=== PATIENT | female | born 1995 | race Caucasian/White ===

== ENCOUNTER 2019-04-21 05:27 | Inpatient (IN) | payer OTHER ==
[2019-04-21] MEDS ORDERED: OXYTOCIN 30 UNITS/LR 500 ML IV ×2 (08:00→14:30)
[2019-04-21] MEDS ORDERED: CARBOPROST 250 MCG INJ IM ×2 (08:00→14:30)
[2019-04-21 08:05] LABS: ADD MAN DIFF? NO
[2019-04-21 08:08] LABS: BASOPHILS % 0.3 % (0.0-2.0); EOSINOPHILS # 0.1 10^3/ul (0.0-0.5); EOSINOPHILS % 1.1 % (0.0-7.0); HEMATOCRIT 32.7 % (37.0-47.0); HEMOGLOBIN 10.1 g/dl (12.0-16.0); LYMPHOCYTES # 2.2 10^3/ul (0.8-2.9); LYMPHOCYTES % 29.8 % (15.0-51.0); MEAN CORPUSCULAR HEMOGLOBIN 27.3 pg (29.0-33.0); MEAN CORPUSCULAR HGB CONC 30.9 g/dl (32.0-37.0); MEAN CORPUSCULAR VOLUME 88.4 fl (82.0-101.0); MEAN PLATELET VOLUME 11.4 fl (7.4-10.4); MONOCYTE # 0.5 10^3/ul (0.3-0.9); MONOCYTES % 6.5 % (0.0-11.0); NEUTROPHIL # 4.6 10^3/ul (1.6-7.5); NEUTROPHILS % 62.2 % (39.0-77.0); PLATELET COUNT 222 10^3/UL (140-415); RED CELL DISTRIBUTION WIDTH 13.9 % (11.5-14.5)
[2019-04-21 08:08] LABS: WHITE BLOOD COUNT 7.3 10^3/ul (4.8-10.8)
[2019-04-21 08:11] LABS: INR 0.86; PROTIME 11.8 Sec (11.9-14.9); PT RATIO 0.9
[2019-04-21 08:12] LABS: PARTIAL THROMBOPLASTIN TIME 28.9 Sec (23.0-35.0)
[2019-04-21] MEDS: LACTATED RINGER'S 1,000 ML IV ×2 (08:31→15:30)
[2019-04-21 08:50] LABS: HEPATITIS B SURFACE ANTIGEN NEGATIVE (NEGATIVE)
[2019-04-21] MEDS ORDERED: EPHEDrine 25 MG/5 ML SYG (08:54)
[2019-04-21] MEDS ORDERED: morphine SULFATE/PF (10 MG/10 ML) INJ (08:54)
[2019-04-21] MEDS ORDERED: OXYTOCIN 30 UNITS/LR 500 ML BAG IV (08:54)
[2019-04-21] MEDS ORDERED: PHENYLephrine (100 MCG/ML) 10ML SYG (08:54)
[2019-04-21] MEDS ORDERED: ONDANSETRON 4 MG INJ ×2 (09:12→09:52)
[2019-04-21] MEDS ORDERED: NALOXONE (0.4 MG/ML) INJ IV (09:30)
[2019-04-21] MEDS ORDERED: FENTAnyl 50 MCG/ML VIAL IV ×2 (09:30)
[2019-04-21] MEDS ORDERED: HYDROmorphONE 1 MG/5 ML IV SYRINGE IV ×2 (09:30)
[2019-04-21] MEDS ORDERED: ALBUTEROL 0.083% (NEB) 2.5 MG/3 ML AMP HHN (09:30)
[2019-04-21] MEDS ORDERED: ONDANSETRON 4 MG INJ IV ×2 (09:30)
[2019-04-21] MEDS ORDERED: METOCLOPRAMIDE 10 MG INJ IV (09:30)
[2019-04-21] MEDS ORDERED: HYDROmorphONE 0.5 MG/0.5 ML SYG IV ×2 (09:30)
[2019-04-21] MEDS ORDERED: KETOROLAC 30 MG INJ IV (09:30)
[2019-04-21] MEDS ORDERED: DIPHENHYDRAMINE 50 MG INJ IV (09:30)
[2019-04-21] MEDS: CEFAZOLIN 2 GM/50 ML (PMX) 50 ML IVPB (10:47)
[2019-04-21] MEDS: METHYLERGONOVINE 0.2 MG INJ IM (10:48)
[2019-04-21] MEDS: MISOPROSTOL 200 MCG TAB PR (11:34)
[2019-04-21] MEDS: OXYTOCIN 30 UNITS/LR 500 ML IV ×2 (11:35→16:07)
[2019-04-21] MEDS: DEXTROSE 5%-LR 1,000 ML IV ×2 (14:11→22:11)
[2019-04-21] MEDS ORDERED: LANOLIN HPA 1 PKT TOP (14:30)
[2019-04-21] MEDS ORDERED: MISOPROSTOL 200 MCG TAB PR (14:30)
[2019-04-21] MEDS ORDERED: METHYLERGONOVINE 0.2 MG INJ IM (14:30)
[2019-04-21] MEDS ORDERED: METHYLERGONOVINE 0.2 MG TAB PO (14:30)
[2019-04-21 15:39] LABS: RAPID PLASMA REAGIN NONREACTIVE (NR)
[2019-04-21] MEDS: DIPHENHYDRAMINE 50 MG INJ IV (16:57)
[2019-04-21] MEDS: SENNA/DOCUSATE NA (8.6MG/50MG) TAB PO (21:45)
[2019-04-21] MEDS: KETOROLAC 30 MG INJ IV (23:58)
[2019-04-22] MEDS: LACTATED RINGER'S 1,000 ML IV (02:29)
[2019-04-22 05:23] LABS: ADD MAN DIFF? NO
[2019-04-22 05:30] LABS: BASOPHILS % 0.2 % (0.0-2.0); EOSINOPHILS # 0.1 10^3/ul (0.0-0.5); EOSINOPHILS % 0.6 % (0.0-7.0); HEMATOCRIT 30.5 % (37.0-47.0); HEMOGLOBIN 9.6 g/dl (12.0-16.0); LYMPHOCYTES # 1.7 10^3/ul (0.8-2.9); LYMPHOCYTES % 17.9 % (15.0-51.0); MEAN CORPUSCULAR HEMOGLOBIN 27.3 pg (29.0-33.0); MEAN CORPUSCULAR HGB CONC 31.5 g/dl (32.0-37.0); MEAN CORPUSCULAR VOLUME 86.6 fl (82.0-101.0); MONOCYTE # 0.7 10^3/ul (0.3-0.9); MONOCYTES % 7.5 % (0.0-11.0); NEUTROPHIL # 6.9 10^3/ul (1.6-7.5); NEUTROPHILS % 73.5 % (39.0-77.0); PLATELET COUNT 196 10^3/UL (140-415); RED BLOOD COUNT 3.52 10^6/ul (4.20-5.40)
[2019-04-22 05:30] LABS: WHITE BLOOD COUNT 9.4 10^3/ul (4.8-10.8)
[2019-04-22] MEDS: DEXTROSE 5%-LR 1,000 ML IV (06:11)
[2019-04-22] MEDS: MAGNESIUM HYDROXIDE 30ML CUP PO (09:15)
[2019-04-22] MEDS: SENNA/DOCUSATE NA (8.6MG/50MG) TAB PO ×2 (09:15→21:33)
[2019-04-22] MEDS: KETOROLAC 30 MG INJ IV (09:15)
[2019-04-22] MEDS ORDERED: HYDROCODONE/APAP (5/325) TAB NGT (11:00)
[2019-04-22] MEDS ORDERED: DIPHTH/TET/ACEL PERTUSS (ADULT) 0.5 ML VIAL IM* (11:00)
[2019-04-22] MEDS: ASCORBIC ACID 500 MG TAB PO (11:32)
[2019-04-22] MEDS: FERROUS SULFATE (EC) 325 MG TAB PO (11:32)
[2019-04-22] MEDS: IBUPROFEN 800 MG TAB PO ×2 (13:30→21:32)
[2019-04-22] MEDS: HYDROCODONE/APAP (5/325) TAB GTB ×2 (14:00→21:33)
[2019-04-23] MEDS: IBUPROFEN 800 MG TAB PO ×3 (05:39→22:02)
[2019-04-23] MEDS: HYDROCODONE/APAP (5/325) TAB GTB ×3 (05:39→22:02)
[2019-04-23] MEDS: SENNA/DOCUSATE NA (8.6MG/50MG) TAB PO ×2 (11:22→22:02)
[2019-04-23] MEDS: FERROUS SULFATE (EC) 325 MG TAB PO (11:22)
[2019-04-23] MEDS: ASCORBIC ACID 500 MG TAB PO (11:22)
[2019-04-24] MEDS: HYDROCODONE/APAP (5/325) TAB GTB ×2 (05:32→14:13)
[2019-04-24] MEDS: IBUPROFEN 800 MG TAB PO ×2 (05:33→14:12)
[2019-04-24] MEDS: MEASLES,MUMPS,RUBELLA VACCINE INJ SC* (09:00)
[2019-04-24] MEDS: SENNA/DOCUSATE NA (8.6MG/50MG) TAB PO (09:30)
[2019-04-24] MEDS: FERROUS SULFATE (EC) 325 MG TAB PO (09:30)
[2019-04-24] MEDS: ASCORBIC ACID 500 MG TAB PO (09:30)
[2019-04-24] MEDS: DIPHTH/TET/ACEL PERTUSS (ADULT) 0.5 ML VIAL IM* (14:17)
== END 2019-04-24 15:15 | disposition home or self-care (01) | DRG 788 ==
LOC: L-D 05:27 → MS1 13:53
PROVIDERS: Obstetrics & Gynecology
PROC: 10D00Z1 Extraction of Products of Conception, Low, Open Approach (ICD-10-PCS; principal; 2019-04-21 07:30)
DX: O34.211 Maternal care for low transverse scar from previous cesarean delivery (principal); Z3A.39 39 weeks gestation of pregnancy; Z37.0 Single live birth
CPT/HCPCS: 85025; 85610; 85730; 86592; 86850; 86900; 86901; 87340; 90715; 99464